=== PATIENT | male | born 1975 | race Caucasian/White ===

== ENCOUNTER 2016-10-01 16:44 | Emergency (ER) | payer OTHER ==
[~2016-10-01] VITALS: Ht 175.3 cm; Wt 90.6 kg
[2016-10-01 16:46] VITALS: BP 178/117
[2016-10-01] MEDS ORDERED: KETOROLAC 30 MG/1 ML ONE (17:21)
[2016-10-01] MEDS ORDERED: OXYcodone/APAP 5/325MG TABLET PO ONE (17:30)
[2016-10-01] MEDS ORDERED: KETOROLAC 30 MG/1 ML IM ONE (17:30)
== END 2016-10-01 18:07 | disposition home or self-care (01) ==
LOC: ED 18:00
DX: G89.29 Other chronic pain (principal); R10.30 Lower abdominal pain, unspecified; Z76.0 Encounter for issue of repeat prescription
CPT/HCPCS: 96372; 99283; J1885